=== PATIENT | male | born 1980 | race African-American/Black ===

== ENCOUNTER 2018-01-02 04:43 | Emergency (ER) | payer OTHER ==
[2018-01-02 05:06] VITALS: BP 113/66; PULSE 94; TEMP 97.6; BMI 58.7
--- NOTE | 2018-01-02 05:10 | PDOC ---
History of Present Illness - General History Source: Patient Exam Limitations: No Limitations - History of Present Illness Initial Comments: 01/02/18 05:47 The patient is a 37 year old male, with a significant past medical history of PE , sleep apnea, skin pigmentation disorder, and hypertension, who presents to the emergency department with, bilateral lacerations on his feet. As per patient , he was at his grandmothers house when he began bleeding from his feet bilaterally. He is unaware how he cut his feet. He denies any pain to his feet. He denies any recent fevers, chills, headache or dizziness. He denies any recent nausea, vomit, diarrhea or constipation. He denies any recent chest pain or shortness of breath. He denies any recent dysuria, frequency, urgency or hematuria. Allergies: NKA Past surgical history: None reported. Social History: Smoker. Denies EtOH use and recreational drug use. <Vickie Morgan - Last Filed: 01/02/18 06:31> <Melina Granger - Last Filed: 01/03/18 02:57> - General Chief Complaint: Puncture Wound Stated Complaint: BLEEDING FROM FEET Time Seen by Provider: 01/02/18 05:01 Past History <Vickie Morgan - Last Filed: 01/02/18 06:31> - Past Medical History Anemia: No Asthma: No Cancer: No Cardiac Disorders: Yes CVA: No COPD: No CHF: No Dementia: No Diabetes: Yes GI Disorders: No Disorders: No HTN: Yes Hypercholesterolemia: Yes Liver Disease: No Seizures: No Thyroid Disease: No - Suicide/Smoking/Psychosocial Hx Smoking History: Never smoked Have you smoked in the past 12 months: Yes Number of Cigarettes Smoked Daily: 2 Information on smoking cessation initiated: No 'Breaking Loose' booklet given: 08/05/16 Hx Alcohol Use: No Drug/Substance Use Hx: No Substance Use Type: None <Melina Granger - Last Filed: 01/03/18 02:57> - Past Medical History Allergies/Adverse Reactions: Allergies Allergy/AdvReac Type Severity Reaction Status Date / Time No Known Allergies Allergy Verified 01/02/18 05:02 Home Medications: Ambulatory Orders Enoxaparin Sodium [Lovenox] 210 mg SQ BID 08/05/16 Furosemide [Lasix -] 40 mg PO DAILY 08/05/16 Metoprolol Succinate [Toprol XL -] 25 mg PO DAILY 08/05/16 Sertraline HCl [Zoloft -] 100 mg PO DAILY 08/05/16 Tramadol HCl [Conzip] 200 mg PO BID 04/30/17 Cephalexin Monohydrate [Keflex -] 250 mg PO Q6H #28 capsule 01/02/18 Tolnaftate 1% Powder [Tinactin] 1 appful TP BID #108 g 01/02/18 Review of Systems - Review of Systems Able to Perform ROS?: Yes Comments:: 01/02/18 05:48 GENERAL/CONSTITUTIONAL: No fever or chills. No weakness. HEAD, EYES, EARS, NOSE AND THROAT: No change in vision. No ear pain or discharge. No sore throat. CARDIOVASCULAR: No chest pain or shortness of breath. RESPIRATORY: No cough, wheezing, or hemoptysis. GASTROINTESTINAL: No nausea, vomiting, diarrhea or constipation. GENITOURINARY: No dysuria, frequency, or change in urination. MUSCULOSKELETAL: No joint or muscle swelling or pain. No neck or back pain. EXTREMITIES: +Bilateral laceration of the feet. SKIN: No rash NEUROLOGIC: No headache, vertigo, loss of consciousness, or change in strength/ sensation. ENDOCRINE: No increased thirst. No abnormal weight change. HEMATOLOGIC/LYMPHATIC: No anemia, easy bleeding, or history of blood clots. ALLERGIC/IMMUNOLOGIC: No hives or skin allergy. All Other Systems: Reviewed and Negative <Vickie Morgan - Last Filed: 01/02/18 06:31> *Physical Exam - Vital Signs Last Vital Signs Temp Pulse Resp BP Pulse Ox 97.6 F 94 H 20 113/66 95 01/02/18 05:03 01/02/18 05:03 01/02/18 05:03 01/02/18 05:03 01/02/18 05:03 - Physical Exam Comments: 01/02/18 06:15 GENERAL: Awake, alert, and fully oriented, in no acute distress HEAD: No signs of trauma EYES: +Eyes bloodshot. ENT: Auricles normal inspection, hearing grossly normal, nares patent, oropharynx clear without exudates. Moist mucosa NECK: Normal ROM, supple, no lymphadenopathy, JVD, or masses LUNGS: Breath sounds equal, clear to auscultation bilaterally. No wheezes, and no crackles HEART: Regular rate and rhythm, normal S1 and S2, no murmurs, rubs or gallops ABDOMEN: Soft, nontender, normoactive bowel sounds. No guarding, no rebound. No masses EXTREMITIES: Normal range of motion, no edema. No clubbing or cyanosis. No cords, erythema, or tenderness NEUROLOGICAL: Cranial nerves II through XII grossly intact. Normal speech, normal gait SKIN: +2cm shallow curvilinear laceration on left foot. +Skin pigmentation disorder. +Chronic skin changes, skin thickening. +Erythema of distal half of bilateral lower extremities. Warm. <Vickie Morgan - Last Filed: 01/02/18 06:31> - Vital Signs Last Vital Signs Temp Pulse Resp BP Pulse Ox 97.6 F 94 H 20 113/66 95 01/02/18 05:03 01/02/18 05:03 01/02/18 05:03 01/02/18 05:03 01/02/18 05:03 <Melina Granger - Last Filed: 01/03/18 02:57> Medical Decision Making - Medical Decision Making 01/03/18 02:54 Pt comes with bloody soles of his feet. He cut his toe, not sure how. Pt's bilateral feet were washed by myself with peroxide. Pt has only on e curvilinear laceration of the left 1st toe. XRAY shows no FB in the toe. Pt's wound was dressed with surgicel and ryder and tape. He was given abx and tdap. Stable for d/c he walked out of the ER without any problems. <Melina Granger - Last Filed: 01/03/18 02:57> *DC/Admit/Observation/Transfer - Attestations Scribe Attestion: 01/02/18 05:48 Documentation prepared by Vickie Morgan, acting as medical sociologist for Melina Granger MD. <Vickie Morgan - Last Filed: 01/02/18 06:31> - Discharge Dispostion Admit: No <Melina Granger - Last Filed: 01/03/18 02:57> Diagnosis at time of Disposition: Toe laceration - Discharge Dispostion Disposition: HOME Condition at time of disposition: Stable - Prescriptions Prescriptions: Cephalexin Monohydrate [Keflex -] 250 mg PO Q6H #28 capsule Tolnaftate 1% Powder [Tinactin] 1 appful TP BID #108 g - Patient Instructions Printed Discharge Instructions: Diphtheria, Tetanus, and Pertussis (DTaP) Vaccine, Skin Wound Additional Instructions: [employer] KEFLEX [employer]TIBIOTICS KEEP FOOT CLEAN AND DRY YOU GOT A TETANUS SHOT TODAY IT IS GOOD UNTIL 2027!!
[2018-01-02] MEDS ORDERED: DIPHTH,PERTUSS(ACELL),TET VAC 0.5 ML VIAL IM ONE (05:39)
[2018-01-02] MEDS ORDERED: CEPHALEXIN 250 MG/5 ML ORAL SUSPENSION PO ONE (05:39)
[2018-01-02] MEDS ORDERED: CEPHALEXIN MONOHYDRATE 250 MG CAPSULE (FP) ONE (05:46)
== END 2018-01-02 07:11 | disposition home or self-care (01) ==
LOC: JER 04:43
PROC: 3E0234Z Introduction of Serum, Toxoid and Vaccine into Muscle, Percutaneous Approach (ICD-10-PCS; principal; 2018-01-02)
PROC: 0HQNXZZ Repair Left Foot Skin, External Approach (ICD-10-PCS; 2018-01-02)
DX: S91.112A Laceration without foreign body of left great toe without damage to nail, initial encounter (principal); R23.4 Changes in skin texture; W45.8XXA Other foreign body or object entering through skin, initial encounter; W22.8XXA Striking against or struck by other objects, initial encounter; Y93.89 Activity, other specified; Y92.89 Other specified places as the place of occurrence of the external cause; Y99.8 Other external cause status
CPT/HCPCS: 12001-25; 73660-TC-FY; 90471; 99281-25